=== PATIENT | female | born 1940 | race Caucasian/White ===

== ENCOUNTER 2024-12-09 13:47 | Outpatient (AMB) | payer BC, SELFPAY ==
--- NOTE | 2024-12-09 13:59 | A.OFFPC_ITS ---
Vital Signs 12/09/24 14:04 Height 4 ft 9.87 in Weight 102 lb BMI 21.4 BP 112/72 Blood Pressure Location Rt brachial Position Sitting Respiration 14 Pulse 68 Pulse Source Pulse Oximeter Temp 98.2 F Temp Source Oral Pulse Oximetry (%) 98 Oxygen Delivery Method Room Air Intake Visit Reasons: referral for scoliosis Intake Note: Referral for scoliosis Sequins Slinger Required: No Allergies No Known Allergies Allergy (Verified 12/09/24 14:02) Tobacco use date assessed: 12/09/24 Fall risk assessment: No Falls in past year Last assessed Fall Risk: 12/09/24 Dental Screening Dental Screen Date: 07/28/24 HPI referral for scoliosis HPI Details Patient is an 84-year-old female who presents today requesting a referral to physical therapy. Reports a significant past medical history of hyperlipidemia, frequent UTIs, insomnia and liver cancer. Heme-Onc: Follows with [facility] Dr. Mina every 6 months for MRIs of her liver. She has had 2 liver masses that have had successful treatment with chemotherapy embolization. Uro: Follows with Dr. Noriega is group for her frequent UTIs. On methenamine hippurate. Psych: We will use hydroxyzine intermittently to help with insomnia. Msk: states she was always told she had a little scoliosis and she has noted that her hips feel a little out of alignment. She states that she has never had treatment for the scoliosis and does not really have significant back pain but does have some discomfort at times and does notice that she hunches her back and does not like her posture. She would like to follow with physical therapy so she can correct her posture, work on core strengthening and work on improvement of her hips. She states at times it does feel like her hips are a bit sore. She has not had any recent imaging. She says the only thing she has had done was a bone density and they told us she had scoliosis. She denies any radiation down the legs. No bowel or bladder dysfunction. She is very indepe ndent at 84 and active and does not want to lose her ability. Mammo: UTD states about 6 months ago at [place] Bone Density: within 2023 at [place]- never heard results. Colonoscopy: No longer gets this. [facility] Surgical History H/O: hysterectomy Family History Mother Colon cancer Daughter Breast cancer Social History (Updated 12/09/24 @ 14:14 by Barbara Jacobson CMA) Housing: House Alcohol intake: current Comment: wine with dinner Patient Tobacco Use Status: Former Tobacco user (quit 70 years ago) Cigarettes Per Day: 1 Years Smoked: 5 e-Cigarette/Vaping Use: Never Used Second Hand Smoke Exposure: No service: No Current occupational status: retired Cognitive needs: No Hearing needs: No Vision needs: Yes (glasses) Questionnaire PHQ-9 Over the last 2 weeks, how often have you been bothered by any of the following problems? 1. Little interest or pleasure in doing things: not at all 2. Feeling down, depressed, or hopeless: not at all 3. Trouble falling or staying asleep, or sleeping too much: not at all 4. Feeling tired or having little energy: not at all 5. Poor appetite or overeating: not at all 6. Feeling bad about yourself - or that you are a failure or have let yourself or your family down: not at all 7. Trouble concentrating on things, such as reading the newspaper or watching television: not at all 8. Moving or speaking so slowly that other people could have noticed. Or the opposite - being so fidgety or restless that you have been moving around a lot more than usual: not at all 9. Thoughts that you would be better off or of hurting yourself in some way: not at all Total score: 0 Source: Developed by Drs. Lamont Mcelroy, Zainab Méndez, Len Gordon and colleagues, with an educational enrrique from [employer]. Thrive Questionnaire Date Thrive assessed: 12/09/24 I am a: Patient What is your living situation today?: I have a steady place to live Within the past 12 months, did the food you bought not last and you didn't have the money to get more?: Never true Within the past 12 months, did you worry whether your food would run out before you got money to buy more?: Never true Do you have trouble paying for medicines?: No Do you have trouble getting transportation to medical appointments?: No Do you have trouble paying your heating and electricity bill?: No Do you have trouble taking care of your child, family member or friend?: No Do you have trouble with day-to-day activities such as bathing, preparing meals, shopping, managing finances, etc.?: No Are you currently unemployed and looking for a job?: No Are you interested in more education?: No Please select the resources that you would like help with: None Currently or been in a relationship where the following occur: I choose not to answer THRIVE Score: 0 AUDIT C Alcohol Use Questionnaire (AUDIT-C) 1. How often do you have a drink containing alcohol?: Never 3. How often do you have six or more drinks on one occasion?: Never Total Score: 0 Physical exam (Primary Care) Vital Signs: Last Vital Signs Temp 98.2 F 12/09/24 14:04 Pulse 68 12/09/24 14:04 Resp 14 12/09/24 14:04 BP 112/72 12/09/24 14:04 Pulse Ox 98 12/09/24 14:04 Oxygen Delivery Method Room Air 12/09/24 14:04 BMI result Body Mass Index 21.4 Tobacco/Smoking Status: Tobacco use Status Tobacco use date assessed 12/09/24 12/09/24 14:08 Patient Tobacco Use Status Former Tobacco user (quit 71 12/09/24 14:14 years ago) e-Cigarette/Vaping Use Never Used 12/09/24 14:14 PHQ-9: PHQ-9 Score PHQ-9: Total score 0 12/09/24 14:23 Thrive Assessment: Date of Thrive Assessment Date Thrive assessed 12/09/24 12/09/24 14:01 Currently or been in a relationship where the following occur: I choose not to answer Const Orientation/consciousness: patient oriented x3 HENMT Ears: hearing grossly normal bilaterally Neck Thyroid: Thyroid normal Lymphatic: no lymphadenopathy noted Resp Auscultation: clear to auscultation bilaterally Cardio Rate: regular rate Rhythm: regular rhythm Heart sounds: S1 normal heart sound present and S2 normal heart sound present GI Inspection: Yes normal to inspection Palpation (GI): Soft to palpation and Other GI palpation findings present (nonte nder, no cva tenderness) Auscultation: normoactive bowel sounds Rectal Exam - Female: deferred Back/Spine/Pelvis Cervical Spine: cervical ROM normal Thoracic/Lumbar Spine: straight leg raise negative bilaterally, kyphosis, paraspinal muscle tenderness and Thoracic/lumbar scoliosis Skin General skin exam: no rashes or lesions noted Neuro General: patient oriented x3, gait normal and no focal motor deficits Extrem General: Yes normal to inspection and Yes capillary refill normal Coding Level of Care Code Est Pt Level 4 (08975) Complex EM visit Add On G2211 Diagnoses Back pain M54.9 Bilateral hip pain M25.551; M25.552 Dyslipidemia E78.5 Assessment & Plan Assessment & Plan (1) Back pain: Code(s): M54.9 - Dorsalgia, unspecified Category: Medical Plan: Referral to physical therapy x-rays ordered (2) Bilateral hip pain: Code(s): M25.551 - Pain in right hip; M25.552 - Pain in left hip Category: Medical Plan: as above (3) Dyslipidemia: Code(s): E78.5 - Hyperlipidemia, unspecified Category: Medical Plan: reminded her to complete labs. Continue pravastatin. Orders: Orders XR lumbar spine 2-3V 12/09/24 M54.50 - Low back pain, unspecified XR hips AUGIE min 3V 12/09/24 M25.551 - Pain in right hip, M25.552 - Pain in left hip XR thoracic spine 3V 12/09/24 M54.6 - Pain in thoracic spine PT Evaluation and Treatment 12/09/24 M25.551 - Pain in right hip, M25.552 - Pain in left hip, M54.9 - Dorsalgia, unspecified
[2024-12-09 14:04] VITALS: BP 112/72; PULSE 68; RESP 14; TEMP 36.8; O2SAT 98; BMI 21.4
--- OUTSIDE RECORDS SUMMARY | 2024-12-09 15:00 | XMS_ITS ---
Author Organization [facility] Care Team Providers Care Compressor Service Technician Name Role Phone Lola Doyle Unavailable Unavailable Geeta Dorman Unavailable Unavailable Marlene Queen Unavailable Unavailable Bree Castillo Unavailable Unavailable Xavier Glynn Unavailable Unavailable Allergies and adverse reactions Code CodeSystem Substance Reaction Severity StartDate Concern Status 161 RXNORM Tylenol Unknown 09/08/2023 active Care Team Name Role Address Phone Organization Dates Geeta Dorman PCP [address], [place], [address], [place] (Office): [facility] 09/08/2023 - 09/16/2023 Lola Doyle [address], [place], [address], [place] (Office): [facility] 09/08/2023 - 09/16/2023 Marlene Queen [address], [place], [address], [place] (Office): [facility] 09/08/2023 - 09/16/2023 Bree Castillo [address] [place], [address], [place] (Office): [facility] 09/08/2023 - 09/16/2023 Xavier Glynn [address], [place], [address], [place] (Office): : [facility] 09/08/2023 - 09/16/2023 Mental Status Section Date Assessment Total Score Description 09/16/2023 BIMS 15 cognitively int act CAM 0 No delirium ind icated PHQ-9 00 09/14/2023 BIMS 15 cognitively int act CAM 0 No delirium ind icated PHQ-9 00 Problems Problem # Description Date of onset Resolved Date Code CodeSystem Concern Status 1 DIFFICULTY IN WALKING, NOT ELSEWHERE CLASSIFIED [address] active 2 DISPLACED FRACTURE OF LATERAL MALLEOLUS OF RIGHT FIBULA, SUBSEQUENT ENCOUNTER FOR CLOSED FRACTURE WITH ROUTINE HEALING [address] active 3 HISTORY OF FALLING [address] active 4 HYPERLIPIDEMIA, UNSPECIFIED [address] active 5 LIVER CELL CARCINOMA [address] active 6 NEED FOR ASSISTANCE WITH PERSONAL CARE [id number] active 7 UNSPECIFIED FALL, SUBSEQUENT ENCOUNTER [address] active 8 UNSTEADINESS ON FEET [address] active Reason for Referral No Reasons for Referral Entered Social History Social History Observation Description Start Date End Date Code Code System Current Smoking Status Tobacco smoking consumption unknown 978885621 SNOMED CT Sex Assigned At Female 1940 90010-6 [facility] Gender Identity Vital Signs Code Code System Vitals Name Values and Units Timing Information 21045-1 LOINC Pain Level Value=0.0 09/16/2023 8462-4 LOINC Blood Pressure-Diastolic Value=60 Un its=mmHg 09/16/2023 8480-6 LOINC Blood Pressure-Systolic Kvgar=832 Un its=mmHg 09/16/2023 8310-5 LOINC Body Temperature Value=98.3 Units= F 09/16/2023 8867-4 LOINC Heart rate Value=70.0 Units=/min 91876-1 [facility] O2 % BldC Oximetry Value=95.0 Units= % 09/16/2023 9279-1 [facility] Respiratory Rate Value=16.0 Units=/m in 09/15/2023 18860-1 [facility] Weight Lahcq=509.2 Units=Lbs 8302-2 [facility] Height Value=54.0 Units=Inches 09/09/2023
== END 2024-12-09 14:36 | disposition home or self-care (01) ==
LOC: HO.HMCFM 13:47
PROVIDERS: PCP Physician Assistant; Visit Provider Physician Assistant
DX: M54.9 Dorsalgia, unspecified (principal); M25.551 Pain in right hip; M25.552 Pain in left hip; E78.5 Hyperlipidemia, unspecified

== ENCOUNTER → 2024-12-09 13:47 | Outpatient (BNVA) | payer BC, SELFPAY | PROVIDERS: PCP Physician Assistant; Visit Provider Physician Assistant | DX: Z13.89 Encounter for screening for other disorder (principal) ==

== ENCOUNTER 2024-12-09 14:46 | Outpatient (REF) | payer BC, SELFPAY ==
[2024-12-09 18:10] LABS: Anion Gap 14 (12-20); Blood Urea Nitrogen 23 mg/dL (9-16); Calcium 9.8 mg/dL (8.4-10.2); Carbon Dioxide 28 mmol/L (22-29); Chloride 107 mmol/L (96-108); Cholesterol 196 mg/dL (<200); Estimated Glomerular Filt Rate > 60; Glucose Random 103 mg/dL (60-115); HDL Cholesterol 75 mg/dL (>40); LDL Cholesterol Calculated 82 mg/dL (<100); Potassium 4.1 mmol/L (3.3-5.1); Sodium 145 mmol/L (135-145); Triglycerides 199 mg/dL (<150)
[2024-12-09 18:13] LABS: TSH reflex Free T4 0.84 uIU/mL (0.32-4.0)
== END 2024-12-09 14:47 | disposition home or self-care (01) ==
LOC: HO.WFDLDS 14:46
PROVIDERS: Visit Provider Physician Assistant
DX: N39.0 Urinary tract infection, site not specified (principal); G47.00 Insomnia, unspecified; E78.5 Hyperlipidemia, unspecified
CPT/HCPCS: 36415; 80048; 80061; 84443

== ENCOUNTER 2025-01-26 11:01 | Outpatient (AMB) | payer BC, SELFPAY ==
--- NOTE | 2025-01-26 11:04 | MHC.PC.OV ---
Vital Signs 01/26/25 11:06 Height 4 ft 9.87 in Weight 102 lb BMI 21.4 BP 118/64 Blood Pressure Location Lt brachial Position Sitting Respiration 12 Pulse 65 Pulse Source Pulse Oximeter Pulse Oximetry (%) 100 Oxygen Delivery Method Room Air Intake Visit Reasons: meds and labs Intake Note: Medication follow up, lab results. Donor Technician Required: No Allergies No Known Allergies Allergy (Verified 01/26/25 11:05) Medication List - Last Reconciled 01/26/25 by Dominique Velarde PA-C hydroxyzine HCl 25 mg PO BEDTIME methenamine hippurate grams PO pravastatin 20 mg PO BEDTIME Tobacco use date assessed: 01/26/25 Dental Screening Dental Screen Date: 07/28/24 HPI meds and labs HPI Details Patient is an 85-year-old female who presents today requesting a referral to physical therapy. Reports a significant past medical history of hyperlipidemia, frequent UTIs, insomnia and liver cancer. Heme-Onc: Follows with [facility] Dr. Mina every 6 months for MRIs of her liver. She has had 2 liver masses that have had successful treatment with chemotherapy embolization. Uro: Follows with [facility] for her frequent UTIs. On methenamine hippurate and recently had 3 utis. Psych: We will use hydroxyzine intermittently to help with insomnia. Msk: She has been going to physical therapy for strengthening conditioning and is feeling well with this. Mammo: UTD states about 6 months ago at [place] Bone Density: within 2023 at [place]- never heard results. Colonoscopy: No longer gets this. [facility] Surgical History H/O: hysterectomy Family History Mother Colon cancer Daughter Breast cancer Social History (Updated 12/09/24 @ 14:14 by Barbara Jacobson CMA) Housing: House Alcohol intake: current Comment: wine with dinner Patient Tobacco Use Status: Former Tobacco user (quit 70 years ago) Cigarettes Per Day: 1 Years Smoked: 5 e-Cigarette/Vaping Use: Never Used Second Hand Smoke Exposure: No service: No Current occupational status: retired Cognitive needs: No Hearing needs: No Vision needs: Yes (glasses) Questionnaire Thrive Questionnaire Date Thrive assessed: 12/09/24 I am a: Patient What is your living situation today?: I have a steady place to live Within the past 12 months, did the food you bought not last and you didn't have the money to get more?: Never true Within the past 12 months, did you worry whether your food would run out before you got money to buy more?: Never true Do you have trouble paying for medicines?: No Do you have trouble getting transportation to medical appointments?: No Do you have trouble paying your heating and electricity bill?: No Do you have trouble taking care of your child, family member or friend?: No Do you have trouble with day-to-day activities such as bathing, preparing meals, shopping, managing finances, etc.?: No Are you currently unemployed and looking for a job?: No Are you interested in more education?: No Please select the resources that you would like help with: None Currently or been in a relationship where the following occur: I choose not to answer THRIVE Score: 0 AUDIT C Alcohol Use Questionnaire (AUDIT-C) 2. How many drinks containing alcohol do you have on a typical day when you are drinking?: 1 or 2 3. How often do you have six or more drinks on one occasion?: Never Total Score: 0 JAVON-7 AMB Questionnaire JAVON-7 Feeling nervous, anxious, or on edge: 1 = Several days Not being able to stop or control worryin = Not at all Worrying too much about different things: 1 = Several days Trouble relaxin = Not at all Being so restless that it is hard to sit still: 0 = Not at all Becoming easily annoyed or irritable: 0 = Not at all Feeling afraid as if something awful might happen: 0 = Not at all Total JAVON-7 score (0-4 normal; 5-9 mild; 10-14 moderate; 15-21 severe): 2 Source: Developed by Drs. Lamont Mcelroy, Zainab Méndez, Len Gordon and colleagues, with an educational enrrique from [employer]. Physical exam (Primary Care) Vital Signs: Last Vital Signs Pulse 65 01/26/25 11:06 Resp 12 01/26/25 11:06 BP 118/64 01/26/25 11:06 Pulse Ox 100 01/26/25 11:06 Oxygen Delivery Method Room Air 08/06/25 11:06 BMI result Body Mass Index 21.4 Tobacco/Smoking Status: Tobacco use Status Tobacco use date assessed 01/26/25 01/26/25 11:09 Patient Tobacco Use Status Former Tobacco user (quit 71 01/26/25 11:09 years ago) e-Cigarette/Vaping Use Never Used 01/26/25 11:09 Thrive Assessment: Date of Thrive Assessment Date Thrive assessed 12/09/24 01/26/25 11:09 Currently or been in a relationship where the following occur: I choose not to answer Const Orientation/consciousness: patient oriented x3 HENMT Ears: hearing grossly normal bilaterally Neck Thyroid: Thyroid normal Lymphatic: no lymphadenopathy noted Resp Auscultation: clear to auscultation bilaterally Cardio Rate: regular rate Rhythm: regular rhythm Heart sounds: S1 normal heart sound present and S2 normal heart sound present GI Inspection: Yes normal to inspection Palpation (GI): Soft to palpation and Other GI palpation findings present (nontender, no cva tenderness) Auscultation: normoactive bowel sounds Rectal Exam - Female: deferred Skin General skin exam: no rashes or lesions noted Neuro General: patient oriented x3, gait normal and no focal motor deficits Results Reviewed Results Reviewed: Laboratory Tests 12/09/24 14:48 Sodium 145 Potassium 4.1 Creatinine 0.83 Estimated GFR > 60 Random Glucose 103 Calcium 9.8 Triglycerides 199 H Cholesterol 196 LDL Cholesterol, Calc 82 HDL Cholesterol 75 TSH 0.84 Coding Level of Care Code Est Pt Level 4 (79239) Complex EM visit Add On G2211 Diagnoses Frequent UTI N39.0 Dyslipidemia E78.5 Insomnia G47.00 Assessment & Plan Assessment & Plan (1) Frequent UTI: Code(s): N39.0 - Urinary tract infection, site not specified Category: Medical Plan: Recently completed antibiotics. Is due to go back to have another UA and culture (2) Dyslipidemia: Code(s): E78.5 - Hyperlipidemia, unspecified Category: Medical Plan: Well-controlled. Continue current regimen (3) Insomnia: Code(s): G47.00 - Insomnia, unspecified Category: Medical Plan: As above Orders: Orders Comprehensive [place]. Panel Fast Today E78.5 - Hyperlipidemia, unspecified, G47.00 - Insomnia, unspecified, N39.0 - Urinary tract infection, site not specified Lipid Panel Today E78.5 - Hyperlipidemia, unspecified, G47.00 - Insomnia, unspecified, N39.0 - Urinary tract infection, site not specified TSH reflex Free T4 Today E78.5 - Hyperlipidemia, unspecified, G47.00 - Insomnia, unspecified, N39.0 - Urinary tract infection, site not specified UA CC w/rflx Micro + Cult Today E78.5 - Hyperlipidemia, unspecified, G47.00 - Insomnia, unspecified, N39.0 - Urinary tract infection, site not specified, Z13.220 - Encounter for screening for lipoid disorders Complete Blood Count Auto Diff Today E78.5 - Hyperlipidemia, unspecified, G47.00 - Insomnia, unspecified, N39.0 - Urinary tract infection, site not specified
[2025-01-26 11:06] VITALS: BP 118/64; PULSE 65; RESP 12; O2SAT 100; BMI 21.4
--- OUTSIDE RECORDS SUMMARY | 2025-01-26 11:48 | XMS_ITS | Encounter Summary ---
Author Organization [facility] Address [address] [place] [address] Phone Care Team Providers Care Women'S Studies Lecturer Name Role Phone Anju Menezes MD Primary Care Provider Self-Referred, Patient Unavailable Unavailab le Valentín Rocha MD Unavailable [phone] Encounter Details Date Type Department Care Team (Late st Contact Info) Description 03/27/2018 Procedure Pass DF IMG OUTSIDE IMG [address] [place] [address] Social History Tobacco Use Types Packs/Day Years Used Date Smoking Tobacco: Never Assessed Comments Unknown Sex and Gender Information Value Date Recorded Sex Assigned at Not on file Legal Sex Female 12:17 PM EDT Gender Identity Not on file Sexual Orientation Not on file documented as of this encounter Plan of Treatment Not on file documented as of this encounter Visit Diagnoses Not on filedocumented in this encounter Care Teams Women'S Studies Lecturer Relationship Specialty Start Date End Date Anju Menezes MD [address] [place] [address] PCP - General Internal Medicine 02/25/18 Self-Referred, Patient Referring Physician 02/25/18 Valentín Rocha MD [address] [place] [address] [email or web address] Primary Oncologist Medical Oncology 02/26/18 documented as of this encounter Additional Source Comments The information contained in this document represents components of the legal health record. It is not the complete legal health record.[facility]
--- OUTSIDE RECORDS SUMMARY | 2025-01-26 11:48 | XMS_ITS ---
Author Name [facility] Organization Unknown Care Team Organization Name Specialty Phone Email Start Date End Da te [facility] Kelly De La O DO Primary Care 04/30/202201/21
--- OUTSIDE RECORDS SUMMARY | 2025-01-26 11:48 | XMS_ITS | Encounter Summary ---
Author Organization [facility] Address [address] [place] [address] Care Team Providers Care Hand Straightener Name Role Phone Vu Foster MD Primary Care Provider Encounter Details Date Type Department Care Team (Late st Contact Info) Description 04/30/2024 Lab Requisition [facility] - Main Lab [address] [place] [address] Hi Toro MD [address] [address] Pyuria Social History Tobacco Use Types Packs/Day Years Used Date Smoking Tobacco: Never Smokeless Tobacco: Never Alcohol Use Standard Drinks/Week Comments Yes 7 (1 standard drink = 0.6 oz pur e alcohol) Comments Unknown Sex and Gender Information Value Date Recorded Sex Assigned at Not on file Legal Sex Female 10:25 PM EST Gender Identity Not on file Sexual Orientation Not on file documented as of this encounter Plan of Treatment Not on file documented as of this encounter Procedures Procedure Name Priority Date/Time Associated Diagnosis Comments CULTURE URINE Routine 04/30/2024 11:42 AM EST Pyuria documented in this encounter Results * (ABNORMAL) Culture urine (04/30/2024 11:42 AM EST) Culture, Urine >100,000 CFU/mL Escherichia coli(A) RALPH 05/02/2024 11:35 AM EST [facility] Urine Urine specimen obtained by clean catch procedure / Unknown 04/30/2024 11:42 AM EST 04/30/2024 2:39 PM EST Narrative Organism Antibiotic Method Susceptibility Escherichia coli Amoxicillin/Clavulanate RALPH <=2 ug/ml: Susceptible Escherichia coli Ampicillin/Sulbactam RALPH <=2 ug/ml: Susceptible Escherichia coli Piperacillin/Tazobactam RALPH <=4 ug/ml: Susceptible Escherichia coli Cefazolin (Urine) RALPH <=1 ug/ml: Susceptible Escherichia coli Cefoxitin RALPH <=4 ug/ml: Susceptible Escherichia coli Ceftazidime RALPH <=0.5 ug/ml: Susceptible Escherichia coli Ceftriaxone RALPH <=0.25 ug/ml: Susceptible Escherichia coli Cefepime RALPH <=0.12 ug/ml: Susceptible Escherichia coli Meropenem RALPH <=0.25 ug/ml: Susceptible Escherichia coli Amikacin RALPH 2 ug/ml: Susceptible Escherichia coli Gentamicin RALPH <=1 ug/ml: Susceptible Escherichia coli Ciprofloxacin RALPH <=0.06 ug/ml: Susceptible Escherichia coli Levofloxacin RALPH <=0.12 ug/ml: Susceptible Escherichia coli Nitrofurantoin RALPH <=16 ug/ml: Susceptible Escherichia coli Trimethoprim/Sulfamethoxazole RALPH <=20 ug/ml: Susceptible us Hi Toro MD LAB MICROBIOLOGY - G ENERAL ORDERABLES Final Result [facility] [address] [place] [address], documented in this encounter Visit Diagnoses Diagnosis Pyuria Other nonspecific finding on examination of urine documented in this encounter Care Teams Hand Straightener Relationship Specialty Start Date End Date Vu Foster MD [address] [place] [address] Dr Mcgowan [place] PCP - General Family Medicine 07/21/24 documented as of this encounter
--- OUTSIDE RECORDS SUMMARY | 2025-01-26 11:48 | XMS_ITS | Patient Health Record ---
Author Organization [facility] Address [address] [place] [address] Support Name Relationship Address Phone BROOKE MARIA T Guarantor Unknown [phone] Reason For Referral No Information Medications Medication SIG (Take, Route, Fr equency, Duration) Notes Start Date End Date Status Calcium-Carb 600 + D 1 ORAL daily; Duration: -3 Kevin-MJ Active Multivitamins 1 ORAL daily; Duration: -3 Kevin-MJ 2 Active Problems Problem Type SNOMED Code ICD Code Onset Dates Problem Status W/U Status Risk Notes Problem Osteoarthritis (253363599) Osteoarthrosis, unspecified whether generalized or localized, unspecified site (715.90) Active confirmed Major Problem Routine general medical examination at health care facility (V70.0) Active confirmed Diag Plan Of Treatment No Information Insurance Providers Payer Name Payer Address Payer Phone Subscriber Number Group Number Insured Name Patient Relationship to Insured Coverage Start Date Coverage End Date [employer] [place] [address] [place] [address] [phone] [id number] MARIA T COX Self - patient is the insured
== END 2025-01-26 11:40 | disposition home or self-care (01) ==
LOC: HO.HMCFM 11:02
PROVIDERS: PCP Physician Assistant; Visit Provider Physician Assistant
DX: N39.0 Urinary tract infection, site not specified (principal); E78.5 Hyperlipidemia, unspecified; G47.00 Insomnia, unspecified

== ENCOUNTER 2025-03-17 10:44 | Outpatient (AMB) | payer BC, SELFPAY ==
--- NOTE | 2025-03-17 10:54 | MHC.PC.OV ---
Vital Signs 03/17/25 10:55 Height 4 ft 9.87 in Weight 103 lb 6 oz BMI 21.7 BP 128/80 Blood Pressure Location Rt brachial Position Sitting Respiration 12 Pulse 76 Pulse Source Pulse Oximeter Pulse Oximetry (%) 97 Oxygen Delivery Method Room Air Intake Visit Reasons: back f/u Intake Note: Follow up Screenplay Writer Required: No Allergies No Known Allergies Allergy (Verified 03/17/25 10:55) Tobacco use date assessed: 03/17/25 Fall risk assessment: No Falls in past year Last assessed Fall Risk: 03/17/25 Dental Screening Dental Screen Date: 07/28/24 HPI back f/u HPI Details Patient is an 85-year-old female who presents today f/u. Reports a significant past medical history of hyperlipidemia, frequent UTIs, insomnia and liver cancer. Heme-Onc: Follows with [facility] Dr. Mina every 6 months for MRIs of her liver. She has had 2 liver masses that have had successful treatment with chemotherapy embolization. Uro: Follows with [facility] urology for her frequent UTIs. On methenamine hippurate. Psych: We will use hydroxyzine intermittently to help with insomnia. Msk: She has been going to physical therapy for strengthening conditioning and is feeling well with this. Wants a handicap placard. UTD on vaccines Mammo: UTD states at [facility] Bone Density: within 2023 at [place] Colonoscopy: No longer gets this. [facility] Surgical History H/O: hysterectomy Family History Mother Colon cancer Daughter Breast cancer Social History (Updated 12/09/24 @ 14:14 by Barbara Jacobson CMA) Housing: House Alcohol intake: current Comment: wine with dinner Patient Tobacco Use Status: Former Tobacco user (quit 70 years ago) Cigarettes Per Day: 1 Years Smoked: 5 e-Cigarette/Vaping Use: Never Used Second Hand Smoke Exposure: No service: No Current occupational status: retired Cognitive needs: No Hearing needs: No Vision needs: Yes (glasses) Questionnaire Thrive Questionnaire Date Thrive assessed: 12/09/24 I am a: Patient What is your living situation today?: I have a steady place to live Within the past 12 months, did the food you bought not last and you didn't have the money to get more?: Never true Within the past 12 months, did you worry whether your food would run out before you got money to buy more?: Never true Do you have trouble paying for medicines?: No Do you have trouble getting transportation to medical appointments?: No Do you have trouble paying your heating and electricity bill?: No Do you have trouble taking care of your child, family member or friend?: No Do you have trouble with day-to-day activities such as bathing, preparing meals, shopping, managing finances, etc.?: No Are you currently unemployed and looking for a job?: No Are you interested in more education?: No Please select the resources that you would like help with: None Currently or been in a relationship where the following occur: I choose not to answer THRIVE Score: 0 AUDIT C Alcohol Use Questionnaire (AUDIT-C) 1. How often do you have a drink containing alcohol?: 4 or more times a week 2. How many drinks containing alcohol do you have on a typical day when you are drinking?: 1 or 2 3. How often do you have six or more drinks on one occasion?: Never Total Score: 4 Physical exam (Primary Care) Vital Signs: Last Vital Signs Pulse 76 03/17/25 10:55 Resp 12 03/17/25 10:55 BP 128/80 03/17/25 10:55 Pulse Ox 97 03/17/25 10:55 Oxygen Delivery Method Room Air 03/17/25 10:55 BMI result Body Mass Index 21.7 Tobacco/Smoking Status: Tobacco use Status Tobacco use date assessed 03/17/25 03/17/25 10:58 Patient Tobacco Use Status Former Tobacco user (quit 70 03/17/25 10:58 years ago) e-Cigarette/Vaping Use Never Used 03/17/25 10:58 Thrive Assessment: Date of Thrive Assessment Date Thrive assessed 12/09/24 03/17/25 10:58 Currently or been in a relationship where the following occur: I choose not to answer Const Orientation/consciousness: patient oriented x3 HENMT Ears: hearing grossly normal bilaterally Neck Thyroid: Thyroid normal Lymphatic: no lymphadenopathy noted Resp Auscultation: clear to auscultation bilaterally Cardio Rate: regular rate Rhythm: regular rhythm Heart sounds: S1 normal heart sound present and S2 normal heart sound present GI Inspection: Yes normal to inspection Palpation (GI): Soft to palpation and Other GI palpation findings present (nontender, no cva tenderness) Auscultation: normoactive bowel sounds Rectal Exam - Female: deferred Skin General skin exam: no rashes or lesions noted Neuro General: patient oriented x3, gait normal and no focal motor deficits Coding Level of Care Code Est Pt Level 4 (17086) Complex EM visit Add On G2211 Diagnoses Dyslipidemia E78.5 Chronic bilateral low back pain without sciatica M54.50; G89.29 Back pain location: low back pain Chronicity: chronic Back pain laterality: bilateral Sciatica presence: without sciatica Bilateral hip pain M25.551; M25.552 Primary malignant neoplasm of liver C22.8 Liver malignancy type: unspecified primary liver malignancy Assessment & Plan Assessment & Plan (1) Dyslipidemia: Code(s): E78.5 - Hyperlipidemia, unspecified Category: Medical Plan: continue pravastatin will monitor labs (2) Back pain: Code(s): M54.9 - Dorsalgia, unspecified Category: Medical Qualifiers: Back pain location: low back pain Chronicity: chronic Back pain laterality: bilateral Sciatica presence: without sciatica Qualified Code(s): M54.50 - Low back pain, unspecified; G89.29 - Other chronic pain Plan: imaging ordered continue with stretches (3) Bilateral hip pain: Code(s): M25.551 - Pain in right hip; M25.552 - Pain in left hip Category: Medical Plan: as above handicap card ordered (4) Liver cancer: Code(s): C22.9 - Malignant neoplasm of liver, not specified as primary or secondary Category: Medical Qualifiers: Liver malignancy type: unspecified primary liver malignancy Qualified Code(s): C22.8 - Malignant neoplasm of liver, primary, unspecified as to type Plan: mri scheduled oct
[2025-03-17 10:55] VITALS: BP 128/80; PULSE 76; RESP 12; O2SAT 97; BMI 21.7
== END 2025-03-17 11:34 | disposition home or self-care (01) ==
LOC: HO.HMCFM 10:45
PROVIDERS: PCP Physician Assistant; Visit Provider Physician Assistant
DX: C22.8 Malignant neoplasm of liver, primary, unspecified as to type (principal); E78.5 Hyperlipidemia, unspecified; M54.50 Low back pain, unspecified; G89.29 Other chronic pain; M25.551 Pain in right hip; M25.552 Pain in left hip